=== PATIENT | female | born 1960 | race Caucasian/White ===

== ENCOUNTER 2016-11-24 11:52 | Inpatient (IN) | payer BC ==
--- NOTE | ~2016-11-24 | HP ---
History And Physical [facility] [address] [place]. [address] NAME: NOY SAL : 62 STATUS : ADM IN [facility]#: [id number] AGE: 56 ADM/REG DATE : 11/24/16 MR#: [id number] REPORT SERV DATE: 11/24/16 DICTATED BY: KENNY KEE DATE: 11/24/16 REPORT STATUS : Draft TRANSCRIBED BY: MODRuby DATE: 11/24/16 DATE OF ADMISSION: 11/24/2016 CHIEF COMPLAINT: Cough and shortness of breath. HISTORY OF PRESENT ILLNESS: The patient is a 56-year-old white female, who presented to [facility] with complaints of cough, wheezing, shortness of breath that would not get better. Upon presentation, this patient underwent a chest x-ray and was found to have a new hilar lesion and since Dr. Melvin Couch is following her for her cancer from the past, the patient requested that she be transferred to [facility]. When she came to the hospital and during my evaluation of her, this patient reported that approximately on 11/15, she started having some cough. She went to see her primary care physician, where a chest x- ray was done which revealed a right upper lobe infiltrate or pneumonia. She took seven-day course of Levaquin. She continued to use her inhalers like she normally does; however, she continued to have significant coughing and more problems, so she decided to come to the emergency room. When she presented to the ER, she was noted to have a saturation of 88% and with 2 L of O2, she started saturating about 94%. This patient normally does not use oxygen at home. A chest x-ray in the emergency room revealed a new hilar lesion. A CTA of the chest was done, which showed the hilar mass, and the patient was referred to us for further evaluation. REVIEW OF SYSTEMS: A 10-point review of systems was negative. PAST MEDICAL HISTORY: Significant for non-small cell lung cancer, status post chemoradiation in 2013, the patient just under surveillance. The last CT scan in 05/2016 revealed the patient is status post treatment of right lung carcinoma, and there was a stable right perihilar scarring and 2.3 x 3.0 cm hilar lymph node. No new lung lesions or adenopathy was noted at that time. She also uses tobacco, she has COPD. PAST SURGICAL HISTORY: Significant for recent breast biopsy, which was benign, and a prior bronchoscopy with biopsy. ALLERGIES: NO KNOWN DRUG ALLERGIES. HOME MEDICATIONS: Symbicort, Spiriva, and albuterol. SOCIAL HISTORY: The patient admits to smoking one pack per day for many years. Occasional use of alcohol, maybe twice weekly. Occasional use of marijuana, last used four days prior to admission. No history of IV drug abuse. FAMILY HISTORY: Mother at the age of 56 from a heart attack. No history of lung cancer in the family. PHYSICAL EXAMINATION: GENERAL: White female, lying on the bed, appears to be not in any significant respiratory History And Physical [address] [address] NAME: NOY SAL : 62 STATUS : ADM IN [facility]#: [id number] AGE: 56 ADM/REG DATE : 11/24/16 MR#: [id number] REPORT SERV DATE: 11/24/16 DICTATED BY: KENNY KEE. DATE: 11/24/16 REPORT STATUS : Draft TRANSCRIBED BY: AIDEN DATE: 11/24/16 distress, wearing oxygen, saturating 94% on 2 L of nasal cannula. VITAL SIGNS: Blood pressure is 132/75, pulse of 91, temp of 99.0. HEENT: Head is normocephalic and atraumatic. Pupils are equal, round, and reactive to light. Extraocular muscles are intact. Sclerae are anicteric. Conjunctivae are normal. Oropharynx without lesion. Tongue protrusion midline. Uvula midline. NECK: Supple. No jugular venous distention. No carotid bruits or thyromegaly is appreciated. No lymphadenopathy in the neck is palpable. HEART: Mild tachycardia. No murmurs, rubs, or gallops. PMI nondisplaced. LUNGS: Diffuse expiratory wheezing. Diminished breath sounds and air entry in both lower lobes, right and left, worse on the right than on the left. No rhonchi, no rales or crackles are noted. ABDOMEN: Scaphoid, soft, nontender. Good bowel sounds. No rebound or guarding. No organomegaly. EXTREMITIES: Without cyanosis, clubbing, or edema. NEUROLOGICAL: Within normal limits. LABORATORY DATA: Labs available from [place]: Chest x-ray shows a mass-like density within the right perihilar region, measuring 3 cm, and demonstrating adjacent architectural distortion. CT shows a spiculated right hilar mass, 2.6 x 2.8 x 1.9 cm, consistent with primary pulmonary neoplasm. Patchy, irregular nodular opacities are present at the lung bases, left greater than right. There has been appearance of an acute infectious or an inflammatory process. These have been present on previous CT scans as noted previously. A noncalcified 5 mm pulmonary nodule at the right lung base has a more topical rounded appearance. CBC completely normal. CMP completely normal. IMPRESSION: 1. Acute exacerbation of chronic obstructive pulmonary disease. 2. Hypoxic respiratory failure. 3. Lung cancer with possible recurrence. 4. Tobacco abuse. PLAN: The patient will be admitted. IV fluids will be given. IV steroids will be given. IV nebs will be given. O2 supplement will be used. Routine labs will be ordered. We will obtain CT scan to our system from [place]. We will ask Dr. Couch to see the patient in consultation. The patient remains a full code. ARGENIS/AIDEN Kenny Kee M.D. / [id number] CC: Kenny Kee M.D. History And Physical [address] [address] NAME: NOY SAL : 62 STATUS : ADM IN [facility]#: [id number] AGE: 56 ADM/REG DATE : 11/24/16 MR#: [id number] REPORT SERV DATE: 11/24/16 DICTATED BY: KENNY KEE DATE: 11/24/16 REPORT STATUS : Draft TRANSCRIBED BY: MODL DATE: 11/24/16 Guilherme Farias IV, NP
--- NOTE | ~2016-11-24 | DS ---
Discharge Summary [facility] [address] [place]. [address] NAME: NOY SAL : 62 STATUS : ADM IN [facility]#: [id number] AGE: 56 ADM/REG DATE : 11/24/16 MR#: [id number] REPORT SERV DATE: 11/26/16 DICTATED BY: KENNY KEE DATE: 11/26/16 REPORT STATUS : Draft TRANSCRIBED BY: MODL DATE: 11/26/16 ADMISSION DATE: 11/24/2016 DISCHARGE DATE: 11/26/2016 DISCHARGE DIAGNOSES: 1. Acute exacerbation of chronic obstructive pulmonary disease. 2. Hypoxic respiratory failure. 3. Lung cancer with possible recurrence, previous diagnosis of stage IB lung cancer. 4. Tobacco abuse. CONSULTANTS DURING THIS HOSPITALIZATION: Dr. Marquess Kim of Hematology/Oncology. INVASIVE PROCEDURES DONE DURING THIS HOSPITALIZATION: None. BRIEF HISTORY OF PRESENT ILLNESS: The patient is a 56-year-old female, transferred from [facility] with complaints of cough, wheezing and shortness of breath, so she was admitted. For detailed history and physical exam, please see my note dictated on 11/24/2016. HOSPITAL COURSE: After being admitted to the hospital, this patient was given IV Solu- Medrol, aggressive nebulizing treatment. She had finished a full course of Levaquin, so no further antibiotics were necessary. This patient's procalcitonin level was less than 0.05. All other lab work was negative. Her chest x-ray was consistent with hilar lymph node. There was a CT of the chest done at [facility] [place], which showed a new hilar lesion, a spiculated right hilar mass that was 2.6 x 2.8 x 1.9 cm, consistent with primary pulmonary neoplasm, so this patient was transferred here. This patient continued to do well. We have switched her to p.o. steroids. She is on Spiriva, Symbicort, and albuterol. She remained somewhat hypoxic, and we are checking her oxygen evaluation for possibility of home needs and ambulatory oxygen went down in the 80s, so we will arrange for home O2. DISCHARGE DISPOSITION: Home with home oxygen. DISCHARGE ACTIVITY: As tolerated. DISCHARGE DIET: A low-sodium diet. DISCHARGE MEDICATIONS: Tessalon Perles 200 mg three times daily; hydrocodone 5/325 one tablet every eight hours, #20 with no refills given; Symbicort 160/4.5 one puff twice daily; albuterol one neb three times daily; Spiriva one capsule inhalation once daily; prednisone 40 mg once daily for four more days. DISCHARGE FOLLOWUP: With Dr. Melvin Couch in the outpatient setting for possibility of recurrence of lung cancer and further workup of lung cancer. More than 30 minutes spent planning this patient's discharge, reconciling medications, writing prescriptions, discussing hospital care and followup with the patient, and Discharge Summary [address] [address] NAME: NOY SAL : 62 STATUS : ADM IN PAT#: [id number] AGE: 56 ADM/REG DATE : 11/24/16 MR#: [id number] REPORT SERV DATE: 11/26/16 DICTATED BY: KENNY KEE DATE: 11/26/16 REPORT STATUS : Draft TRANSCRIBED BY: ATAL DATE: 11/26/16 documenting this discharge. DICTATED BY: Guilherme Merchant/AIDEN Kenny Kee M.D. / [id number] CC: Guilherme Merchant NP Mark S Womack IV, M.D.
[~2016-11-24 11:52] MED LIST: ALBUTEROL0.083 % INH; PROVHFA INH; SPIRIVA INH; SYMBICORT 160/41 INH INH
[2016-11-25 06:56] LABS: BASOPHILS 0 %; EOSINOPHILS 0 %; HEMATOCRIT 40.1 % (36.0-48.0); IMMATURE GRANULOCYTES 0.4 %; IMMATURE GRANULOCYTES ABSOLUTE 0.06 10/3/uL (0.0-0.11); LYMPHOCYTES 8.6 %; MEAN CORPUS HGB CONC 32.4 g/dL (32.0-36.0); MEAN CORPUSCULAR HEMOGLOB 29.6 pg (26.0-34.0); MEAN CORPUSCULAR VOLUME 91.3 fL (80-100); MEAN PLATELET VOLUME 8.9 fL (9.2-13.0); MONOCYTES 3.7 %; MONOCYTES ABSOLUTE 0.51 10/3/uL (0.21-1.20); NEUTROPHILS 87.3 %; NEUTROPHILS ABSOLUTE 12.15 10/3/uL (2.02-8.40); PLATELET COUNT 352 10/3/uL (150-400); RBC DISTRIBUTION WIDTH 13.2 % (12.0-16.0); RED CELL COUNT 4.39 10/6/uL (4.0-5.6)
[2016-11-25 06:57] LABS: MANUAL DIFF NO %; WHITE BLOOD CELLS 13.9 10/3/uL (4.5-10.5)
[2016-11-25 07:06] LABS: ALBUMIN 3.4 G/DL (3.5-5.0); BUN (BLOOD UREA NITROGEN) 14 MG/DL (6-23); CALCIUM, SERUM 9.1 MG/DL (8.5-10.4); CHLORIDE, SERUM 105 MMOL/L (96-112); CO2 (CARBON DIOXIDE) 28 MMOL/L (24-34); CREATININE 0.58 MG/DL (0.55-1.02); GFR AFRICAN AMERICAN 120 ML/MIN (>=60); GFR NON AFRICAN AMERICAN 104 ML/MIN (>=60); PHOSPHORUS, SERUM 3.1 MG/DL (2.5-4.5); POTASSIUM, SERUM 4.2 MMOL/L (3.5-5.3); SODIUM, SERUM 139 MMOL/L (135-148)
[2016-11-25 07:07] LABS: GLUCOSE, SERUM 128 MG/DL (60-99)
[2016-11-26] MEDS ORDERED: TESSALON200 MG PO ×2 (14:36→15:20)
[2016-11-26] MEDS ORDERED: P20 PO (14:37)
[2016-11-26] MEDS ORDERED: NORCO1 TA1 PO (14:40)
[2016-12-17] MEDS ORDERED: IBU600 PO (10:02)
[2017-02-20] MEDS ORDERED: MELATONIN10 M2 PO (14:17)
== END 2016-11-26 17:14 | disposition home or self-care (01) | DRG 189 ==
LOC: 7NO 11:52
PROVIDERS: Internal Medicine
DX: J96.91 Respiratory failure, unspecified with hypoxia (principal); J44.1 Chronic obstructive pulmonary disease with (acute) exacerbation; C34.91 Malignant neoplasm of unspecified part of right bronchus or lung; F17.210 Nicotine dependence, cigarettes, uncomplicated
CPT/HCPCS: 71020; 80069; 84145; 85025; 94640; A9270-GY; J1170; J2405; J2930

== ENCOUNTER 2016-12-20 08:03 | Day surgery (SDC) | payer BC ==
--- NOTE | ~2016-12-20 | EGD ---
EGD REPORT [facility] [address] [address] NAME: GRACE GAMBLE : 62 STATUS : REG [facility]#: [id number] AGE: 56 ADM/REG DATE : 12/20/16 MR#: [id number] REPORT SERV DATE: 12/20/16 DICTATED BY: KAILEE PATE DATE: 12/20/16 REPORT STATUS : Draft [facility]: [facility] DATE: 12/20/16 Pulmonology Patient Name: Grace Gamble Procedure Date: 12/20/2016 9:20 AM Date of : 1960 Attending MD: LISA PATE MD Procedure Date No Time: 12/20/2016 Procedure: EBUS/NAVIGATIONAL BRONCHOSCOPY Indications: Right upper lobe nodule Providers: LISA PATE MD Referring MD: MIGUEL BLEDSOE MD Medicines: Lidocaine 2% 20 mL Complications: No immediate complications Procedure: Pre-Anesthesia Assessment: - A History and Physical has been performed. Patient meds and allergies have been reviewed. The risks and benefits of the procedure and the sedation options and risks were discussed with the patient. All questions were answered and informed consent was obtained. Patient identification and proposed procedure were verified prior to the procedure by the physician and the nurse in the pre-procedure area in the procedure room. Mental Status Examination: alert and oriented. Airway Examination: normal oropharyngeal airway. Respiratory Examination: poor air movement. CV Examination: normal and RRR, no murmurs, no S3 or S4. ASA Grade Assessment: IV - A patient with severe systemic disease that is a constant threat to life. After reviewing the risks and benefits, the patient was deemed in satisfactory condition to undergo the procedure. The anesthesia plan was to use general anesthesia. Immediately prior to administration of medications, the patient was re-assessed for adequacy to receive sedatives. The heart rate, respiratory rate, oxygen saturations, blood pressure, adequacy of pulmonary ventilation, and response to care were monitored throughout the procedure. The physical status of the patient was re-assessed after the procedure. After obtaining informed consent, the BF [id number] was introduced through the mouth, via the endotracheal tube (the patient was intubated for the procedure) and advanced to the tracheobronchial tree. the Bronchoscope was introduced through the mouth, via the endotracheal tube (the patient was intubated for the procedure) and advanced to the tracheobronchial tree. The procedure was accomplished without difficulty. The patient EGD REPORT [address] [address] NAME: GRACE GAMBLE : 62 STATUS : REG [facility] PAT#: [id number] AGE: 56 ADM/REG DATE : 12/20/16 MR#: [id number] REPORT SERV DATE: 12/20/16 DICTATED BY: KAILEE PATE DATE: 12/20/16 REPORT STATUS : Draft TRANSCRIBED BY: [employer] DATE: 12/20/16 tolerated the procedure well. Findings: The endotracheal tube is in good position. The visualized portion of the trachea is of normal caliber. The waldo is sharp. The tracheobronchial tree was examined to at least the first subsegmental level. The RUL anterior subsegment demonstrated a small atypical tissue with hypervascularity coinciding with the RUL lesion on CT. EBUS TBNA of lymph node level 11L x 4 passes for cytology EBUS TBNA of lymph node level 7 x 6 passes for cytology EBUS TBNA of lymph node level 11R x 4 passes for cytology Using SuperDimension Edge catheter 180, peripheral probe EBUS 17s, and fluoroscopy, I performed the following biopsies: RUL lung nodule transbronchial needle aspirates x 4 passes for cytology Brushings were obtained in the right upper lobe of the lung and sent for routine cytology. One sample was obtained. Endobronchial biopsies were performed in the right upper lobe of the lung using a forceps and sent for histopathology examination. Two samples were obtained. Bronchoalveolar lavage was performed in the right upper lobe of the lung and sent for routine cytology. 120 mL of fluid were instilled. 30 mL were returned. The return was blood-tinged. Impression: Rapid On-Site Evaluation (PLACIDO): Preliminary cytology is "ATYPICAL CELLS" (final results are pending). Recommendation: - Await test results. - Chest X-ray. - Follow up with referring physician. - If non-diagnostic, I recommend CT scan FNA or short term repeat surveillance imaging. Attending Participation: I personally performed the entire procedure. LISA PATE MD 12/20/2016 11:54 AM This report has been signed electronically. Number of Addenda: 0 Note Initiated On: 12/20/2016 9:20 AM [address] [address]
[~2016-12-20 08:03] MED LIST changes: +IBU600 PO; +NORCO1 TA1 PO; +P20 PO; +TESSALON200 MG PO
[2016-12-20 08:38] LABS: BASOPHILS 0.5 %; BASOPHILS ABSOLUTE 0.03 10/3/uL (0.0-0.16); EOSINOPHILS ABSOLUTE 0.53 10/3/uL (0.0-0.53); HEMATOCRIT 42.5 % (36.0-48.0); HEMOGLOBIN 13.7 g/dL (12.0-16.0); IMMATURE GRANULOCYTES 0.3 %; IMMATURE GRANULOCYTES ABSOLUTE 0.02 10/3/uL (0.0-0.11); LYMPHOCYTES 30.5 %; LYMPHOCYTES ABSOLUTE 2.02 10/3/uL (0.67-4.30); MANUAL DIFF NO %; MEAN CORPUS HGB CONC 32.2 g/dL (32.0-36.0); MEAN CORPUSCULAR HEMOGLOB 29.5 pg (26.0-34.0); MEAN CORPUSCULAR VOLUME 91.4 fL (80-100); MEAN PLATELET VOLUME 9.1 fL (9.2-13.0); MONOCYTES 9.7 %; MONOCYTES ABSOLUTE 0.64 10/3/uL (0.21-1.20); NEUTROPHILS ABSOLUTE 3.39 10/3/uL (2.02-8.40); PLATELET COUNT 260 10/3/uL (150-400); RBC DISTRIBUTION WIDTH 14.2 % (12.0-16.0); RED CELL COUNT 4.65 10/6/uL (4.0-5.6); WHITE BLOOD CELLS 6.6 10/3/uL (4.5-10.5)
[2016-12-20 08:44] LABS: PARTIAL THROMBO TIME 28.3 SEC (22.5-37.2); PROTIME (NOT ORD) 12.6 SEC (12.0-14.5)
[2017-02-20] MEDS ORDERED: MELATONIN10 M2 PO (14:17)
== END 2016-12-20 23:59 | disposition home health service (06) ==
LOC: DMU 08:03
PROVIDERS: Internal Medicine
PROC: 07B74ZX Excision of Thorax Lymphatic, Percutaneous Endoscopic Approach, Diagnostic (ICD-10-PCS; principal; 2016-12-20 09:30)
PROC: 0B9C8ZX Drainage of Right Upper Lung Lobe, Via Natural or Artificial Opening Endoscopic, Diagnostic (ICD-10-PCS; 2016-12-20 09:30)
DX: R91.1 Solitary pulmonary nodule (principal); J44.1 Chronic obstructive pulmonary disease with (acute) exacerbation; Z79.899 Other long term (current) drug therapy; F17.210 Nicotine dependence, cigarettes, uncomplicated; Z98.890 Other specified postprocedural states
CPT/HCPCS: 71010; 85025; 85610; 85730; 88112; 88172; 88173; 88177; 88305; 88333; 93005; A9270-GY; C1725; C1769; J1170; J2250; J2405; J2710; J3010